=== PATIENT | female | born 1950 | race Caucasian/White ===

== ENCOUNTER 2021-01-14 15:54 | Inpatient (IN) | payer MEDICARE ==
[2021-01-14] VITALS (9 sets, daily range): BP systolic 91–118; BP diastolic 43–69
[~2021-01-14] VITALS: Ht 167.6 cm; Wt 51.0 kg
[~2021-01-14 15:54] MED LIST: ALBU0.63 NEB; ASPI-963 PO; ATOR-2 PO; CLOP75TA PO; METH4TAB PO; METO25TA91 PO
[2021-01-14] MEDS ORDERED: FOLI1TAB32 PO (16:03)
[2021-01-14] MEDS ORDERED: VITAMIN B12 (16:03)
--- NOTE | 2021-01-14 16:26 | NUR ---
MED RECORDS REQUESTED FROM [facility].
[2021-01-14] MEDS ORDERED: PANTOPRAZOLE 40 MG IV ONE ×2 (17:09→17:33)
[2021-01-14] MEDS: PANTOPRAZOLE 40 MG IV IVPush ONE ×2 (17:12→17:38)
[2021-01-14 17:19] LABS: MEAN CORPUSCULAR HEMOGLOBIN 34.3 pg (27.0-34.8); MEAN CORPUSCULAR HGB CONC 33.6 g/dL (32.4-35.8); MEAN PLATELET VOLUME 7.7 fL (7.4-10.4); PLATELET COUNT 241 x10^3/uL (130-400); RED BLOOD COUNT 1.23 x10^6/uL (3.82-5.3); RED CELL DISTRIBUTION WIDTH 18.3 % (9.6-15.2)
[2021-01-14 17:28] LABS: ALANINE AMINOTRANSFERASE 33 U/L (12-78); ALBUMIN 2.6 g/dL (3.4-5.0); ANION GAP 3 mmol/L (5-15); CALCIUM 8.2 mg/dL (8.5-10.1); CHLORIDE 107 mmol/L (98-107); CREATININE 0.47 mg/dL (0.55-1.02)
[2021-01-14 17:30] LABS: ALKALINE PHOSPHATASE 71 U/L (45-117); BILIRUBIN,TOTAL 0.2 mg/dL (0.2-1.0); TOTAL PROTEIN 5.1 g/dL (6.4-8.2)
[2021-01-14 17:33] LABS: PROTHROMBIN TIME 10.7 Seconds (9.6-11.5)
--- NOTE | 2021-01-14 17:40 | NUR ---
BREAK RN: PT RESTING IN ROOM. 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 VS STABLE. DR ESPINO AWARE OF H&H. CALL LIGHT IN PLACE. WILL CONTINUE TO MONITOR.
[2021-01-14 17:49] LABS: BAND#(MANUAL) 0.09 x10^3/uL; BANDS%(MANUAL) 1 % (0-7); EOS#(MANUAL) 0.28 x10^3/uL (0.0-0.4); EOS% (MANUAL) 3 % (1-7); LYMPH#(MANUAL) 0.46 x10^3/uL (1-3.4); LYMPHS% (MANUAL) 5 % (22-44); MONOS#(MANUAL) 0.37 x10^3/uL (0.3-2.7); MONOS% (MANUAL) 4 % (2-9); SEGS% (MANUAL) 87 % (42-75)
[2021-01-14 17:50] LABS: ANISOCYTOSIS 1+
[2021-01-14 17:51] LABS: OVALOCYTES 1+; POLYCHROMASIA 1+
[2021-01-14 17:52] LABS: <PLATELET ESTIMATE> ADEQUATE; <PLT MORPHOLOGY> NORMAL PLT MORPH
--- NOTE | 2021-01-14 18:00 | NUR ---
PIV PLACED BY APRIL PADRON. NEW PIV PLACED BY TASK RN VIA US. 18G LONG,.
[2021-01-14 18:30] LABS: PARTIAL THROMBOPLASTIN TIME < 23 Seconds (25-31)
--- NOTE | 2021-01-14 18:58 | NUR ---
RECEIVED V/O FROM DR KHAN, HOSPITALIST, FOR 1L NS BOLUS, FOR LOW BP. ORDER INPUT AND IVF INFUSING. HOSPITALIST AT BEDSIDE FOR ASSESSMENT.
[2021-01-14] MEDS ORDERED: SODIUM CHLORIDE 0.9% 1,000ML IVBOLUS ONE (19:00)
--- NOTE | 2021-01-14 19:20 | NUR ---
PT BP INCREASED TO 130/54 AFTER 500ML NS. INFUSION STOPPED D/T PT HX HTN. BLOOD CONTINUES TO INFUSE. PT DENIES ANY S/SX OF ADVERSE RX. PT CONNCTED TO ALL MONITORING.
--- NOTE | 2021-01-14 20:14 | NUR ---
REPORT GIVEN TO TYREE HERRERA. PT RTG TO ROOM 401
--- NOTE | 2021-01-14 20:17 | NUR ---
BLOOD STILL INFUSING UPON TRANSFER.
[2021-01-14] MEDS: ATORVASTATIN 80 MG TABLET PO SCH (21:56)
[2021-01-14] MEDS ORDERED: SODIUM CHLORIDE 0.9% 250 ML IV ONE (23:00)
[2021-01-15 00:08] VITALS: BP 94/56
[2021-01-15 00:53] VITALS: BP 105/60
[2021-01-15 02:26] VITALS: BP 105/63
[2021-01-15 03:44] LABS: ANION GAP 4 mmol/L (5-15); CALCIUM 7.5 mg/dL (8.5-10.1); CHLORIDE 111 mmol/L (98-107); CREATININE 0.41 mg/dL (0.55-1.02)
[2021-01-15 06:41] VITALS: BP 123/67
[2021-01-15] MEDS: FOLIC ACID 1 MG TABLET PO SCH (07:55)
[2021-01-15] MEDS: PANTOPRAZOLE 40 MG IV IVPush SCH ×2 (07:55→20:14)
[2021-01-15 07:56] LABS: TROPONIN I < 0.015 ng/mL (0.000-0.045)
[2021-01-15 10:25] LABS: MICROSCOPIC NOT IND
[2021-01-15] MEDS: LACTATED RINGERS 1,000 ML IV SCH (11:11)
[2021-01-15 14:20] VITALS: BP 117/63
[2021-01-15 20:05] VITALS: BP 105/58
[2021-01-15] MEDS: ATORVASTATIN 80 MG TABLET PO SCH (20:14)
[2021-01-16 02:09] VITALS: BP 103/60
[2021-01-16 06:06] LABS: BASOPHILS % (AUTO) 1 % (0-1); EOSINOPHILS % (AUTO) 5 % (1-7); LYMPHOCYTES % (AUTO) 19 % (22-44); MEAN CORPUSCULAR HEMOGLOBIN 30.5 pg (27.0-34.8); MEAN CORPUSCULAR HGB CONC 33.5 g/dL (32.4-35.8); MEAN PLATELET VOLUME 7.8 fL (7.4-10.4); MONOCYTES % (AUTO) 9 % (2-9); NEUTROPHILS % (AUTO) 66 % (42-75); PLATELET COUNT 186 x10^3/uL (130-400); RED BLOOD COUNT 2.64 x10^6/uL (3.82-5.3); RED CELL DISTRIBUTION WIDTH 24.5 % (9.6-15.2)
[2021-01-16 07:20] VITALS: BP 136/74
[2021-01-16] MEDS ORDERED: PROPOFOL 10 MG/ML, 20ML ONE (08:12)
[2021-01-16] MEDS: FOLIC ACID 1 MG TABLET PO SCH (10:00)
[2021-01-16] MEDS: PANTOPRAZOLE 40 MG IV IVPush SCH (10:00)
[2021-01-16] MEDS: LACTATED RINGERS 1,000 ML IV SCH (10:06)
[2021-01-16 13:22] VITALS: BP 117/69
[2021-01-16] MEDS: PANTOPRAZOLE 40MG TABLET PO SCH (17:29)
[2021-01-16 18:51] VITALS: BP 94/53
[2021-01-16] MEDS: ATORVASTATIN 80 MG TABLET PO SCH (21:24)
[2021-01-16 21:33] LABS: OCCULT BLOOD POSITIVE (NEGATIVE)
[2021-01-17 01:12] VITALS: BP 98/57
[2021-01-17] MEDS: LACTATED RINGERS 1,000 ML IV SCH (03:23)
[2021-01-17 05:22] LABS: ANION GAP 3 mmol/L (5-15); CALCIUM 7.5 mg/dL (8.5-10.1); CHLORIDE 109 mmol/L (98-107)
[2021-01-17 05:23] LABS: CREATININE 0.37 mg/dL (0.55-1.02)
[2021-01-17 05:26] LABS: BASOPHILS % (AUTO) 1 % (0-1); EOSINOPHILS % (AUTO) 6 % (1-7); LYMPHOCYTES % (AUTO) 16 % (22-44); MEAN CORPUSCULAR HGB CONC 33.7 g/dL (32.4-35.8); MEAN PLATELET VOLUME 7.7 fL (7.4-10.4); MONOCYTES % (AUTO) 10 % (2-9); NEUTROPHILS % (AUTO) 67 % (42-75); PLATELET COUNT 195 x10^3/uL (130-400); RED CELL DISTRIBUTION WIDTH 23.9 % (9.6-15.2)
[2021-01-17 07:00] VITALS: BP 102/59
[2021-01-17] MEDS: PANTOPRAZOLE 40MG TABLET PO SCH ×2 (08:14→16:53)
[2021-01-17] MEDS: FOLIC ACID 1 MG TABLET PO SCH (08:14)
[2021-01-17 14:36] VITALS: BP 130/67
[2021-01-17 18:26] VITALS: BP 118/68
[2021-01-17] MEDS: ATORVASTATIN 80 MG TABLET PO SCH (21:26)
[2021-01-18] VITALS (13 sets, daily range): BP systolic 111–142; BP diastolic 57–78
[2021-01-18] MEDS: LACTATED RINGERS 1,000 ML IV SCH (04:43)
[2021-01-18] MEDS: PANTOPRAZOLE 40MG TABLET PO SCH ×2 (08:52→17:37)
[2021-01-18] MEDS: FOLIC ACID 1 MG TABLET PO SCH (08:52)
[2021-01-18] MEDS: ACETAMINOPHEN 325 MG TABLET PO PRN (20:14)
[2021-01-18] MEDS: ATORVASTATIN 80 MG TABLET PO SCH (20:14)
[2021-01-19 01:50] VITALS: BP 144/87
[2021-01-19 07:44] LABS: ABSOLUTE RETICS # 0.133 x10^6/uL (0.5-2.5); RED BLOOD COUNT 3.72 x10^6/uL (3.82-5.3); RETICULOCYTE COUNT % 3.58 % (0.5-1.5)
[2021-01-19] MEDS: PANTOPRAZOLE 40MG TABLET PO SCH (07:54)
[2021-01-19] MEDS: FOLIC ACID 1 MG TABLET PO SCH (07:54)
[2021-01-19 07:55] VITALS: BP 154/73
[2021-01-19] MEDS: ACETAMINOPHEN 325 MG TABLET PO PRN (08:02)
[2021-01-19] MEDS ORDERED: DOCU-131 PO (08:17)
[2021-01-19] MEDS ORDERED: FLUT1AER INH (08:17)
[2021-01-19] MEDS: LACTATED RINGERS 1,000 ML IV SCH (11:44)
[2021-01-19 12:17] VITALS: BP 135/66
== END 2021-01-19 15:46 | disposition home health service (06) | DRG 377 ==
LOC: ED 18:36 → SUATTDRO 18:46 → EDIP 19:19 → 4WST 20:30
PROVIDERS: ADMIT Student in an Organized Health Care Education/Training Program; ATTEND Family Medicine
PROC: 30233N1 Transfusion of Nonautologous Red Blood Cells into Peripheral Vein, Percutaneous Approach (ICD-10-PCS; 2021-01-14)
PROC: 0DJ08ZZ Inspection of Upper Intestinal Tract, Via Natural or Artificial Opening Endoscopic (ICD-10-PCS; principal; 2021-01-16 08:00)
DX: K92.2 Gastrointestinal hemorrhage, unspecified (principal); R57.1 Hypovolemic shock; D62 Acute posthemorrhagic anemia; J96.11 Chronic respiratory failure with hypoxia; Z20.822 Contact with and (suspected) exposure to COVID-19; Z88.8 Allergy status to other drugs, medicaments and biological substances; E78.5 Hyperlipidemia, unspecified; I10 Essential (primary) hypertension; I25.10 Atherosclerotic heart disease of native coronary artery without angina pectoris; J44.9 Chronic obstructive pulmonary disease, unspecified; K59.00 Constipation, unspecified; Z79.02 Long term (current) use of antithrombotics/antiplatelets; Z79.82 Long term (current) use of aspirin; Z87.891 Personal history of nicotine dependence; Z90.710 Acquired absence of both cervix and uterus; Z95.5 Presence of coronary angioplasty implant and graft; Z99.81 Dependence on supplemental oxygen
CPT/HCPCS: 36415; 36430; 71045; 80048; 80053; 81003; 82272; 82728; 83540; 83550; 83735; 84484; 85014; 85018; 85025; 85045; 85610; 85730; 86850; 86900; 86923; 87635; 93005; 96361; 96374; G0378; J2704; C9113; J7030; J7120; P9016